=== PATIENT | male | born 1985 ===

== ENCOUNTER 2025-03-15 13:15 | Emergency (ER) | payer SELFPAY ==
[2025-03-15 13:15] VITALS: BP 159/84; PULSE 134; RESP 20; O2SAT 98
--- NOTE | 2025-03-15 13:24 | PD.EDADULT ---
ED General RME/HPI General Chief complaint: General Adult/Misc Complain Stated complaint: MEDICAL CLEARENCE Time Seen by Provider: 03/15/25 13:22 Arrival date/time: 03/15/25 13:15 CC: Medical clearance, patient comes in initially handcuffed with a PD officer bedside, the patient's heart rate was in the 160s the patient is tearful and talking denying drugs. Patient is not belligerent or uncooperative. After about 10 minutes patient's heart rate is in the 130s. Related Data Allergies Allergy/AdvReac Type Severity Reaction Status Date / Time No Known Allergies Allergy Verified 03/15/25 13:33 Review of Systems Review of Systems Narrative Review of Systems: GEN: No fever, no chills, no weight loss EYES: No discharge, no visual changes, no pain HEENT: No ear pain, no congestion, no sore throat PULM: No shortness of breath, no cough, no congestion CV: No chest pain, no dyspnea on exertion, no palpitations GI: No nausea, no vomiting, no diarrhea, no pain, no constipation : No frequency, no urgency, no dysuria MUSC/SKEL: No joint pain, no back pain SKIN: No rash PSYCH: No hallucinations, no depression HEME/LYMPH: No easy bleeding or bruising tendencies NEURO: No weakness, no headache ED Exam Narrative Physical exam: [General: Appears not in any acute distress Head normocephalic HEENT: Within acceptable limits Neck is supple nontender Chest equal chest rise nontender to palpation Respiratory: Clear to auscultation no wheezes crackles or rubs CV: Rate rhythm is regular no murmurs rubs or clicks Abdomen is distended secondary to body habitus soft nontender no masses positive bowel sounds all 4 quadrants Back: No CVA tenderness no spinous process tenderness from cervical spine thoracic and lumbar spine Skin: Intact no petechiae rash induration ulceration or crepitus Extremities: Moving all extremity against resistance cap refill less than 2 seconds neurosensory intact Neuro: Awake alert oriented x3 Glascow coma 15 no focal deficits] Course Course Course Narrative: Heart rate is decreased to 115. Quality Measures none Orders Category Date Time Status Diazepam Inj [Valium Inj] Med 03/15/25 13:23 Discontinued 10 mg IM X1 ONE Vital Signs Vital signs: Vital Signs Pulse Rate 134 H 03/15/25 13:15 Respiratory Rate 20 03/15/25 13:15 Blood Pressure 159/84 H 03/15/25 13:15 Pulse Oximetry (%) 98 03/15/25 13:15 Oxygen Delivery Method Room Air 03/15/25 13:15 Discharge Plan Plan Patient Disposition: Custodial/Court/Law Patient condition on transfer: Stable Problem List Clinical Impression: Medical clearance for incarceration Patient/Caregiver Discharge Instructions Print Language: Portuguese ALCON Supervising Physician ALCON Supervising Physician: Shay Iniguez ENP [facility] Clinical Information Provided by: patient and law enforcement Medical Records reviewed [facility] Meds/Rx considered, not ordered None Labs/Rad/Tests considered, not ordered None Chronic Illness/Social Conditions which may negatively complicate care or outcome(s)-explain: None or not applicable Medication Administration(s) Medication Administration History Discontinued Medications Diazepam (Diazepam Inj 5 Mg/Ml Vial 2 Ml) 10 mg IM X1 ONE Stop: 03/15/25 13:24 Last Admin: 03/15/25 13:42 Dose: 10 mg Documented By: BELEN
[2025-03-15 13:26] VITALS: BMI 28.1
[2025-03-15 13:28] VITALS: BP 134/80; PULSE 136; RESP 20; O2SAT 98
[2025-03-15] MEDS: DIAZEPAM INJ 5 MG/ML VIAL 2 ML 10 MG IM (13:42)
[2025-03-15 15:16] VITALS: PULSE 115; RESP 18; O2SAT 100
[2025-03-15 15:30] VITALS: BP 138/90
[2025-03-15 15:41] VITALS: BP 138/90; PULSE 117; RESP 20; O2SAT 99
== END 2025-03-15 15:45 ==
LOC: SERX 15:47
PROVIDERS: Emergency Provider Emergency Medicine
DX: Z02.89 Encounter for other administrative examinations (principal)
CPT/HCPCS: 96372; 99282; J3360